=== PATIENT | female | born 1930 | race Asian ===

== ENCOUNTER 2016-07-27 10:05 | Observation (INO) | payer OTHER ==
[~2016-07-27] VITALS: Ht 154.9 cm; Wt 68.3 kg
[~2016-07-27 10:05] MED LIST: ADULT LOW DOSE81 M1 PO; ADVAIR HFA120 INHALA IH; AMIODARONE HCL200 MG PO; AMLODIPINE BESY10 MG PO; AMLODIPINE BESYL5 MG PO; ANTIVERT25 MG PO; ASPIR-LOW81 MG PO; ASPIRIN EC325 MG PO; BAYER CHEWABLE81 MG PO; BENICAR20 MG PO; BENICAR40 MG PO; BENTYL10 MG PO; BENTYL20 MG PO; CARAFATE1 GM PO; CATAPRES0.1 MG PO; CELEBREX200 MG PO; CLEARLAX510 GM PO; CLOPIDOGREL75 MG PO; CORDARONE200 MG PO; DUONEB 2.5-0.5 M3 ML AEROSOL; EFFIENT10 MG PO; ELIQUIS2.5 MG PO; ELIQUIS5 MG PO; GABAPENTIN100 MG PO; GLIPIZIDE XL5 MG PO; GLUCOTROL XL5 MG PO; GLYDO11 ML MM; HYDROCHLOROTHIA25 MG PO; IMDUR60 MG PO; ISOSORBIDE MONO60 MG PO; JANUVIA25 M1 PO; K-DUR20 MEQ PO; KLOR-CON20 MEQ PO; LASIX20 MG PO; LASIX40 MG PO; LORAZEPAM0.5 MG PO; MECLIZINE HCL25 MG PO; METOPROLOL SUC100 MG PO; METOPROLOL SUCC50 MG PO; METOPROLOL TAR100 MG PO; METOPROLOL TART25 MG PO; METOPROLOL TART50 MG PO; MIRALAX17 GM PO; NIASPAN,SLO-NI500 MG PO; NITRO-DUR1 EAC1 TD; NITROGLYCERIN0.4 MG SL; NITROSTAT0.4 MG SL; NORVASC2.5 MG PO; NORVASC5 MG PO; PAIN RELIEF EX500 MG PO; PANTOPRAZOLE SO40 MG PO; PLAVIX75 MG PO; PRAVASTATIN SOD40 MG PO; PRILOSEC20 MG PO; PROMETHAZINE HC25 M1 PO; RANEXA500 MG PO; REFRESH LI300 DROP/1 BOTH EYES; REGLAN10 MG PO; SLO-NIACIN500 MG PO; SPIRIVA RESPIMAT4 GM IH; SPIRONOLACTONE25 MG PO; TOPROL XL100 MG PO; TOPROL XL50 MG PO; TRAMADOL HCL50 MG PO; TRIBENZOR 20-51 EAC1 PO; TRIBENZOR 40-51 EAC5 PO; TYLENOL EXTRA500 MG PO; ULTRAM ER100 MG PO; ULTRAM50 MG PO; VYTORIN 10/21 TABLET PO; ZANTAC150 MG PO
[2016-07-27 10:59] LABS: HEMATOCRIT 41.7 % (36.0-46.0); MCH 24.5 PG (29.0-34.0); MCHC 33.8 G/DL (30.0-36.0); MCV 72.5 FL (83-99); MEAN PLAT.VOLUME 10.9 uM^3 (9.5-12.4); PLATELET COUNT 243 K/uL (156-360); RBC DIS.WIDTH-CV 15.1 % (11.8-14.6); RBC DIS.WIDTH-SD 39.3 % (39-53); RED BLOOD COUNT 5.75 M/uL (3.80-5.20); WHITE BLOOD COUNT 7.1 K/uL (4.1-10.2)
[2016-07-27 11:08] LABS: CHLORIDE 105 mEq/L (99-109); POTASSIUM 3.5 mEq/L (3.7-5.4); SODIUM 142 mEq/L (136-147)
[2016-07-27 11:10] LABS: GLUCOSE 98 mg/dL (70-99)
[2016-07-27 11:12] LABS: ANION GAP 12 MEQ/L (2-14)
[2016-07-27 11:14] LABS: GFR ESTIMATE (CALCULATED) 41 mL/min/
[2016-07-27 11:15] LABS: UREA NITROGEN (BUN) 19 mg/dL (9-23)
[2016-07-27 11:18] LABS: TROP-I INTERPRETATION INDETERMINATE; TROPONIN-I 0.31 ng/mL (0.0-0.30)
[2016-07-27] MEDS ORDERED: METOPROLOL SUCC50 MG PO (12:22)
[2016-07-27] MEDS ORDERED: METOPROLOL SUC100 MG PO (12:22)
[2016-07-27] MEDS ORDERED: RESTASIS 01 DROP/0.4 BOTH EYES (12:25)
[2016-07-27 13:42] VITALS: BP 118/56
[2016-07-27 16:40] VITALS: BP 126/59
[2016-07-27 18:45] LABS: TROP-I INTERPRETATION INDETERMINATE; TROPONIN-I 0.31 ng/mL (0.0-0.30)
[2016-07-28 00:59] LABS: TROP-I INTERPRETATION NEGATIVE; TROPONIN-I 0.27 ng/mL (0.0-0.30)
[2016-07-28 02:04] VITALS: BP 147/67
[2016-07-28 05:08] VITALS: BP 153/70
[2016-07-28 08:00] VITALS: BP 136/61
[2016-07-28 11:00] VITALS: BP 114/56
[2016-07-28 11:26] LABS: TROP-I INTERPRETATION NEGATIVE; TROPONIN-I 0.24 ng/mL (0.0-0.30)
== END 2016-07-28 17:50 | disposition home or self-care (01) ==
LOC: EME 10:05 → EDOF 11:59 → 5WEST 11:59 → EDOF 11:59 → 5WEST 13:17
PROVIDERS: Hospitalist; Physician Assistant
DX: R07.89 Other chest pain (principal); R10.9 Unspecified abdominal pain; I11.0 Hypertensive heart disease with heart failure; I50.32 Chronic diastolic (congestive) heart failure; I48.0 Paroxysmal atrial fibrillation; Z79.01 Long term (current) use of anticoagulants; E11.9 Type 2 diabetes mellitus without complications; Z95.0 Presence of cardiac pacemaker; I35.2 Nonrheumatic aortic (valve) stenosis with insufficiency; I25.10 Atherosclerotic heart disease of native coronary artery without angina pectoris; Z98.61 Coronary angioplasty status; Z95.820 Peripheral vascular angioplasty status with implants and grafts; Z87.891 Personal history of nicotine dependence; Z88.8 Allergy status to other drugs, medicaments and biological substances
CPT/HCPCS: 71020; 74020; 80048; 84484; 85027; 93005; 99281; 99284; G0378; S0028

== ENCOUNTER 2016-10-10 12:38 | Observation (INO) | payer OTHER ==
[~2016-10-10] VITALS: Ht 154.9 cm; Wt 63.3 kg
[~2016-10-10 12:38] MED LIST changes: +RESTASIS 01 DROP/0.4 BOTH EYES
[2016-10-10 14:29] LABS: HEMATOCRIT 41.5 % (36.0-46.0); MCH 24.2 PG (29.0-34.0); MCHC 32.5 G/DL (30.0-36.0); MCV 74.4 FL (83-99); MEAN PLAT.VOLUME 11.1 uM^3 (9.5-12.4); PLATELET COUNT 212 K/uL (156-360); RBC DIS.WIDTH-CV 15.5 % (11.8-14.6); RBC DIS.WIDTH-SD 41.6 % (39-53); RED BLOOD COUNT 5.58 M/uL (3.80-5.20); WHITE BLOOD COUNT 10.5 K/uL (4.1-10.2)
[2016-10-10 14:40] LABS: CHLORIDE 106 mEq/L (99-109); POTASSIUM 3.9 mEq/L (3.7-5.4); SODIUM 140 mEq/L (136-147)
[2016-10-10 14:42] LABS: GLUCOSE 140 mg/dL (70-99)
[2016-10-10 14:43] LABS: ANION GAP 11 MEQ/L (2-14)
[2016-10-10 14:44] LABS: TOTAL BILIRUBIN 1.6 mg/dL (0.0-1.0)
[2016-10-10 14:46] LABS: ALKALINE PHOSPHATASE 73 IU/L (3-129); GFR ESTIMATE (CALCULATED) 45 mL/min/
[2016-10-10 14:47] LABS: UREA NITROGEN (BUN) 15 mg/dL (9-23)
[2016-10-10 14:48] LABS: DIRECT BILIRUBIN 0.7 mg/dL (0.0-0.3)
[2016-10-10 14:49] LABS: LIPASE 23 U/L (1.0-51.0)
[2016-10-10 14:52] LABS: TROP-I INTERPRETATION NEGATIVE; TROPONIN-I 0.23 ng/mL (0.0-0.30)
[2016-10-10 17:39] VITALS: BP 143/70
[2016-10-10 18:50] LABS: TROP-I INTERPRETATION NEGATIVE; TROPONIN-I 0.16 ng/mL (0.0-0.30)
[2016-10-10 20:31] VITALS: BP 141/70
[2016-10-10 21:37] LABS: POINT-OF-CARE METER ID UU13113831
[2016-10-10 22:31] LABS: INFLUENZA A VIRAL ANTIGEN NEGATIVE; INFLUENZA B VIRAL ANTIGEN NEGATIVE
[2016-10-11 00:10] VITALS: BP 131/61
[2016-10-11 01:09] LABS: TROP-I INTERPRETATION NEGATIVE; TROPONIN-I 0.21 ng/mL (0.0-0.30)
[2016-10-11 04:08] VITALS: BP 104/58
[2016-10-11 07:35] VITALS: BP 103/54
[2016-10-11 07:53] LABS: POINT-OF-CARE METER ID UU13113831
[2016-10-11 08:46] LABS: HEMATOCRIT 38.1 % (36.0-46.0); MCH 24.3 PG (29.0-34.0); MCV 75.9 FL (83-99); MEAN PLAT.VOLUME 10.7 uM^3 (9.5-12.4); PLATELET COUNT 180 K/uL (156-360); RBC DIS.WIDTH-CV 15.7 % (11.8-14.6); RBC DIS.WIDTH-SD 42.6 % (39-53); RED BLOOD COUNT 5.02 M/uL (3.80-5.20); WHITE BLOOD COUNT 8.2 K/uL (4.1-10.2)
[2016-10-11 09:09] LABS: ALKALINE PHOSPHATASE 52 IU/L (3-129); ANION GAP 9 MEQ/L (2-14); CHLORIDE 103 MEQ/L (99-109); GFR ESTIMATE (CALCULATED) 41 mL/min/; GLUCOSE 119 mg/dL (70-99); POTASSIUM 3.7 MEQ/L (3.7-5.4); SAMPLE HEMOLYSIS CHECK 0; SAMPLE ICTERIC CHECK 0; SAMPLE LIPEMIA CHECK 0; SODIUM 140 MEQ/L (136-147); TOTAL BILIRUBIN 1.4 MG/DL (0.0-1.0); UREA NITROGEN (BUN) 19 mg/dL (9-23)
[2016-10-11 09:31] LABS: TROP-I INTERPRETATION NEGATIVE; TROPONIN-I 0.17 ng/mL (0.0-0.30)
[2016-10-11] MEDS ORDERED: DULCOLAX10 MG PR (11:12)
[2016-10-11] MEDS ORDERED: DULCOLAX5 MG PO (11:12)
[2016-10-11] MEDS ORDERED: FUROSEMIDE40 MG PO (11:12)
[2016-10-11] MEDS ORDERED: DOCUSATE SODIU100 MG PO (11:12)
[2016-10-11 11:29] VITALS: BP 110/72
[2016-10-11 15:46] LABS: METH RESISTANT S AUREUS PCR NEGATIVE (NEGATIVE)
[2016-10-11 16:03] LABS: PROBE CHECK PASS; SPECIMEN PROCESSING CONTROL PASS
== END 2016-10-11 14:14 | disposition home or self-care (01) ==
LOC: EME 12:38 → EXP 12:38 → 5WEST 16:31 → EDOF 16:31 → 5WEST 17:33
PROVIDERS: Emergency Medicine; Hospitalist
DX: I13.0 Hypertensive heart and chronic kidney disease with heart failure and stage 1 through stage 4 chronic kidney disease, or unspecified chronic kidney disease (principal); I50.33 Acute on chronic diastolic (congestive) heart failure; N18.3 Chronic kidney disease, stage 3 (moderate); I25.10 Atherosclerotic heart disease of native coronary artery without angina pectoris; E11.9 Type 2 diabetes mellitus without complications; I48.0 Paroxysmal atrial fibrillation; I73.9 Peripheral vascular disease, unspecified; I08.0 Rheumatic disorders of both mitral and aortic valves; I27.2 Other secondary pulmonary hypertension; Z95.0 Presence of cardiac pacemaker
CPT/HCPCS: 71020; 74176; 80048; 80053; 80076; 82948; 83605; 83690; 83880; 84145 90; 84484; 85027; 87040; 87502; 87641; 93005; 99281; 99285; G0378; J1940; J2405

== ENCOUNTER 2016-11-20 00:53 | Emergency (ER) | payer OTHER ==
[~2016-11-20] VITALS: Ht 154.9 cm; Wt 64.0 kg
[~2016-11-20 00:53] MED LIST changes: +DOCUSATE SODIU100 MG PO; +DULCOLAX10 MG PR; +DULCOLAX5 MG PO; +FUROSEMIDE40 MG PO
[2016-11-20 02:13] LABS: HEMATOCRIT 40.6 % (36.0-46.0); MCH 24.3 PG (29.0-34.0); MCHC 32.3 G/DL (30.0-36.0); MCV 75.3 FL (83-99); MEAN PLAT.VOLUME 11.1 uM^3 (9.5-12.4); PLATELET COUNT 226 K/uL (156-360); RBC DIS.WIDTH-CV 15.7 % (11.8-14.6); RBC DIS.WIDTH-SD 41.8 % (39-53); RED BLOOD COUNT 5.39 M/uL (3.80-5.20); WHITE BLOOD COUNT 5.8 K/uL (4.1-10.2)
[2016-11-20 02:24] LABS: CHLORIDE 106 mEq/L (99-109); SODIUM 140 mEq/L (136-147)
[2016-11-20 02:27] LABS: GLUCOSE 112 mg/dL (70-99)
[2016-11-20 02:28] LABS: ANION GAP 9 MEQ/L (2-14)
[2016-11-20 02:29] LABS: TOTAL BILIRUBIN 0.7 mg/dL (0.0-1.0)
[2016-11-20 02:30] LABS: ALKALINE PHOSPHATASE 81 IU/L (3-129)
[2016-11-20 02:31] LABS: GFR ESTIMATE (CALCULATED) 35 mL/min/; UREA NITROGEN (BUN) 19 mg/dL (9-23)
[2016-11-20 04:39] LABS: INTER. NORMALIZED RATIO 1.1; PROTHROMBIN TIME 11.1 (9.2-11.2); PTT 30.2 (25-32)
[2016-11-20 04:47] LABS: LIPASE 46 U/L (1.0-51.0)
[2016-11-20 04:51] LABS: TROP-I INTERPRETATION NEGATIVE; TROPONIN-I 0.25 ng/mL (0.0-0.30)
[2016-11-20 05:30] LABS: BILIRUBIN NEGATIVE; BLOOD NEGATIVE; COLOR YELLOW ((YELLOW)); GLUCOSE (STRIP) NEGATIVE; KETONES NEGATIVE; LEUKOCYTES NEGATIVE; NITRITE NEGATIVE; PROTEIN (STRIP) 30; SPECIFIC GRAVITY 1.025 (1.000-1.030); UROBILINOGEN 0.2 MG/DL (0.2-1.0)
[2016-11-20 05:40] LABS: ADD MIUA? NO; UCUL ADDED? NO
[2016-11-20] MEDS ORDERED: BENTYL20 MG PO (06:39)
[2016-11-20] MEDS ORDERED: REGLAN5 MG PO (06:39)
[2016-11-20 07:39] VITALS: BP 148/80
[2016-11-21] MEDS ORDERED: LASIX40 MG PO (09:21)
[2016-11-21] MEDS ORDERED: MIRALAX255 GM PO (09:25)
[2016-11-21] MEDS ORDERED: REGLAN5 MG PO (09:28)
[2016-11-21] MEDS ORDERED: BENTYL20 MG PO (09:28)
== END 2016-11-20 07:41 | disposition home or self-care (01) ==
LOC: EME 00:53
DX: K52.9 Noninfective gastroenteritis and colitis, unspecified (principal); R10.32 Left lower quadrant pain; J90 Pleural effusion, not elsewhere classified; E78.5 Hyperlipidemia, unspecified; I10 Essential (primary) hypertension; Z98.61 Coronary angioplasty status; Z87.891 Personal history of nicotine dependence
CPT/HCPCS: 71020; 74176; 80053; 81003; 83605; 83690; 83880; 84484; 85027; 85610; 85730; 87040; 93005; 99281; 99285; J2270; J2765

== ENCOUNTER 2016-11-21 03:57 | Inpatient (IN) | payer OTHER ==
[~2016-11-21] VITALS: Ht 152.4 cm; Wt 68.0 kg
[~2016-11-21 03:57] MED LIST changes: +REGLAN5 MG PO
[2016-11-21 04:44] LABS: HEMATOCRIT 39.2 % (36.0-46.0); MCH 24.4 PG (29.0-34.0); MCHC 32.4 G/DL (30.0-36.0); MCV 75.4 FL (83-99); MEAN PLAT.VOLUME 10.9 uM^3 (9.5-12.4); PLATELET COUNT 216 K/uL (156-360); RBC DIS.WIDTH-CV 15.5 % (11.8-14.6); RBC DIS.WIDTH-SD 41.5 % (39-53); WHITE BLOOD COUNT 7.3 K/uL (4.1-10.2)
[2016-11-21 04:57] LABS: CHLORIDE 110 mEq/L (99-109); POTASSIUM 3.8 mEq/L (3.7-5.4); SODIUM 142 mEq/L (136-147)
[2016-11-21 04:59] LABS: GLUCOSE 173 mg/dL (70-99)
[2016-11-21 05:00] LABS: ANION GAP 11 MEQ/L (2-14)
[2016-11-21 05:02] LABS: GFR ESTIMATE (CALCULATED) 33 mL/min/
[2016-11-21 05:03] LABS: UREA NITROGEN (BUN) 19 mg/dL (9-23)
[2016-11-21 05:05] LABS: TROP-I INTERPRETATION NEGATIVE; TROPONIN-I 0.25 ng/mL (0.0-0.30)
[2016-11-21] MEDS ORDERED: LASIX40 MG PO (09:21)
[2016-11-21] MEDS ORDERED: MIRALAX255 GM PO (09:25)
[2016-11-21] MEDS ORDERED: BENTYL20 MG PO (09:28)
[2016-11-21] MEDS ORDERED: REGLAN5 MG PO (09:28)
[2016-11-21 12:42] LABS: TROP-I INTERPRETATION NEGATIVE; TROPONIN-I 0.26 ng/mL (0.0-0.30)
[2016-11-21 16:50] VITALS: BP 128/74
[2016-11-21 17:33] LABS: POINT-OF-CARE METER ID UU14174225
[2016-11-21 19:50] VITALS: BP 127/61
[2016-11-21 23:47] VITALS: BP 129/61
[2016-11-22 03:25] VITALS: BP 128/68
[2016-11-22 06:05] LABS: HEMATOCRIT 40.2 % (36.0-46.0); MCH 25.2 PG (29.0-34.0); MCHC 32.8 G/DL (30.0-36.0); MCV 76.9 FL (83-99); MEAN PLAT.VOLUME 10.8 uM^3 (9.5-12.4); PLATELET COUNT 224 K/uL (156-360); RBC DIS.WIDTH-CV 16.1 % (11.8-14.6); RBC DIS.WIDTH-SD 43.5 % (39-53); RED BLOOD COUNT 5.23 M/uL (3.80-5.20); WHITE BLOOD COUNT 7.4 K/uL (4.1-10.2)
[2016-11-22 07:04] LABS: ANION GAP 7 MEQ/L (2-14); CHLORIDE 105 MEQ/L (99-109); GFR ESTIMATE (CALCULATED) 38 mL/min/; SAMPLE HEMOLYSIS CHECK 0; SAMPLE ICTERIC CHECK 0; SAMPLE LIPEMIA CHECK 0; SODIUM 140 MEQ/L (136-147); UREA NITROGEN (BUN) 17 mg/dL (9-23)
[2016-11-22 07:05] LABS: GLUCOSE 105 mg/dL (70-99)
[2016-11-22 07:51] VITALS: BP 156/80
[2016-11-22 07:54] LABS: POINT-OF-CARE METER ID UU14174225
[2016-11-22 11:28] VITALS: BP 132/79
[2016-11-22 12:24] LABS: POINT-OF-CARE METER ID UU14174225
[2016-11-22 12:48] LABS: TROP-I INTERPRETATION NEGATIVE; TROPONIN-I 0.24 ng/mL (0.0-0.30)
[2016-11-22 15:43] VITALS: BP 152/71
[2016-11-22 20:03] VITALS: BP 142/66
[2016-11-22 21:37] LABS: POINT-OF-CARE METER ID UU14188625
[2016-11-23] VITALS: BP 146/67
[2016-11-23 04:00] VITALS: BP 142/73
[2016-11-23 06:44] LABS: ANION GAP 7 MEQ/L (2-14); CHLORIDE 105 MEQ/L (99-109); GFR ESTIMATE (CALCULATED) 35 mL/min/; GLUCOSE 97 mg/dL (70-99); POTASSIUM 3.3 MEQ/L (3.7-5.4); SAMPLE HEMOLYSIS CHECK 0; SAMPLE ICTERIC CHECK 0; SAMPLE LIPEMIA CHECK 0; SODIUM 142 MEQ/L (136-147); UREA NITROGEN (BUN) 18 mg/dL (9-23)
[2016-11-23 08:04] LABS: POINT-OF-CARE METER ID UU14188625
[2016-11-23 08:50] VITALS: BP 147/67
[2016-11-23 11:58] VITALS: BP 115/58
[2016-11-23 15:33] VITALS: BP 133/62
[2016-11-23 16:21] LABS: POINT-OF-CARE METER ID UU14174225
[2016-11-23 21:25] LABS: POINT-OF-CARE METER ID UU14174225
[2016-11-23 23:13] VITALS: BP 138/66
[2016-11-24 06:53] LABS: ANION GAP 10 MEQ/L (2-14); CHLORIDE 105 MEQ/L (99-109); GFR ESTIMATE (CALCULATED) 38 mL/min/; GLUCOSE 104 mg/dL (70-99); SAMPLE HEMOLYSIS CHECK 0; SAMPLE ICTERIC CHECK 0; SAMPLE LIPEMIA CHECK 0; SODIUM 140 MEQ/L (136-147); UREA NITROGEN (BUN) 19 mg/dL (9-23)
[2016-11-24 07:10] LABS: POTASSIUM 4.4 MEQ/L (3.7-5.4)
[2016-11-24 08:15] LABS: HEMATOCRIT 39.1 % (36.0-46.0); MCH 24.8 PG (29.0-34.0); MCHC 32.7 G/DL (30.0-36.0); MCV 75.8 FL (83-99); MEAN PLAT.VOLUME 11.4 uM^3 (9.5-12.4); PLATELET COUNT 232 K/uL (156-360); RBC DIS.WIDTH-CV 15.6 % (11.8-14.6); RBC DIS.WIDTH-SD 42.4 % (39-53); RED BLOOD COUNT 5.16 M/uL (3.80-5.20); WHITE BLOOD COUNT 7.1 K/uL (4.1-10.2)
[2016-11-24 08:56] VITALS: BP 137/73
[2016-11-24 09:01] LABS: POINT-OF-CARE METER ID UU14188625
[2016-11-24 12:36] VITALS: BP 122/56
[2016-11-24 12:57] LABS: TROP-I INTERPRETATION NEGATIVE; TROPONIN-I 0.29 ng/mL (0.0-0.30)
== END 2016-11-24 14:39 | disposition home or self-care (01) | DRG 291 ==
LOC: EME 03:57 → EDOF 09:26 → 5SOUTH 09:26
PROVIDERS: Emergency Medicine; Hospitalist; Internal Medicine; Nurse Practitioner Adult Health; Physician Assistant Medical
PROC: 0W9B3ZZ Drainage of Left Pleural Cavity, Percutaneous Approach (ICD-10-PCS; principal; 2016-11-24)
DX: I13.0 Hypertensive heart and chronic kidney disease with heart failure and stage 1 through stage 4 chronic kidney disease, or unspecified chronic kidney disease (principal); I50.23 Acute on chronic systolic (congestive) heart failure; E11.22 Type 2 diabetes mellitus with diabetic chronic kidney disease; N18.3 Chronic kidney disease, stage 3 (moderate); I48.0 Paroxysmal atrial fibrillation; I25.10 Atherosclerotic heart disease of native coronary artery without angina pectoris; Z95.0 Presence of cardiac pacemaker; E78.5 Hyperlipidemia, unspecified; G47.33 Obstructive sleep apnea (adult) (pediatric); I35.0 Nonrheumatic aortic (valve) stenosis; I27.2 Other secondary pulmonary hypertension; I73.9 Peripheral vascular disease, unspecified; Z91.19 Patient's noncompliance with other medical treatment and regimen; Z87.891 Personal history of nicotine dependence
CPT/HCPCS: 71010; 71020; 71250; 80048; 82948; 84484; 85027; 87040; 87641; 93005; 94640; 94640 76; 94799; 99202; 99281; 99285; J0456; J0692; J0696; J1815; J1940; J2405; J3370; J7030; J7050

== ENCOUNTER 2016-11-30 13:31 | Inpatient (IN) | payer OTHER ==
[~2016-11-30] VITALS: Ht 154.9 cm; Wt 65.8 kg
[~2016-11-30 13:31] MED LIST changes: +MIRALAX255 GM PO
[2016-11-30 15:12] LABS: HEMATOCRIT 41.7 % (36.0-46.0); MCH 24.1 PG (29.0-34.0); MCHC 32.1 G/DL (30.0-36.0); MCV 75.1 FL (83-99); MEAN PLAT.VOLUME 10.9 uM^3 (9.5-12.4); PLATELET COUNT 231 K/uL (156-360); RBC DIS.WIDTH-CV 15.1 % (11.8-14.6); RBC DIS.WIDTH-SD 41.1 % (39-53); RED BLOOD COUNT 5.55 M/uL (3.80-5.20)
[2016-11-30 15:21] LABS: CHLORIDE 103 mEq/L (99-109); POTASSIUM 4.1 mEq/L (3.7-5.4); SODIUM 140 mEq/L (136-147)
[2016-11-30 15:23] LABS: GLUCOSE 101 mg/dL (70-99)
[2016-11-30 15:24] LABS: ANION GAP 9 MEQ/L (2-14)
[2016-11-30 15:27] LABS: GFR ESTIMATE (CALCULATED) 38 mL/min/
[2016-11-30 15:28] LABS: UREA NITROGEN (BUN) 21 mg/dL (9-23)
[2016-11-30 15:34] LABS: TROP-I INTERPRETATION NEGATIVE; TROPONIN-I 0.27 ng/mL (0.0-0.30)
[2016-11-30 18:15] VITALS: BP 132/70
[2016-11-30 18:40] LABS: TROP-I INTERPRETATION NEGATIVE; TROPONIN-I 0.25 ng/mL (0.0-0.30)
[2016-11-30 20:00] VITALS: BP 143/60
[2016-11-30 20:56] LABS: POINT-OF-CARE METER ID UU13113698
[2016-11-30 23:55] VITALS: BP 137/62
[2016-12-01 01:00] LABS: TROP-I INTERPRETATION NEGATIVE; TROPONIN-I 0.25 ng/mL (0.0-0.30)
[2016-12-01 03:42] VITALS: BP 140/65
[2016-12-01 06:49] LABS: ANION GAP 8 MEQ/L (2-14); CHLORIDE 102 MEQ/L (99-109); GFR ESTIMATE (CALCULATED) 35 mL/min/; GLUCOSE 89 mg/dL (70-99); POTASSIUM 3.7 MEQ/L (3.7-5.4); SAMPLE HEMOLYSIS CHECK 0; SAMPLE ICTERIC CHECK 0; SAMPLE LIPEMIA CHECK 0; SODIUM 141 MEQ/L (136-147); UREA NITROGEN (BUN) 18 mg/dL (9-23)
[2016-12-01 07:30] VITALS: BP 127/63
[2016-12-01 08:25] LABS: POINT-OF-CARE METER ID UU14174216
[2016-12-01 08:46] LABS: HEMATOCRIT 41.5 % (36.0-46.0); MCHC 31.8 G/DL (30.0-36.0); MCV 75.3 FL (83-99); MEAN PLAT.VOLUME 11.3 uM^3 (9.5-12.4); PLATELET COUNT 250 K/uL (156-360); RBC DIS.WIDTH-CV 15.3 % (11.8-14.6); RBC DIS.WIDTH-SD 41.4 % (39-53); RED BLOOD COUNT 5.51 M/uL (3.80-5.20); WHITE BLOOD COUNT 6.5 K/uL (4.1-10.2)
[2016-12-01 09:29] LABS: ANION GAP 8 MEQ/L (2-14); CHLORIDE 102 MEQ/L (99-109); GFR ESTIMATE (CALCULATED) 38 mL/min/; GLUCOSE 99 mg/dL (70-99); POTASSIUM 3.7 MEQ/L (3.7-5.4); SAMPLE HEMOLYSIS CHECK 0; SAMPLE ICTERIC CHECK 0; SAMPLE LIPEMIA CHECK 0; SODIUM 141 MEQ/L (136-147); UREA NITROGEN (BUN) 19 mg/dL (9-23)
[2016-12-01 11:30] LABS: POINT-OF-CARE METER ID UU14174216
[2016-12-01 12:25] VITALS: BP 108/59
[2016-12-01 15:15] VITALS: BP 112/60
[2016-12-01 15:56] LABS: POINT-OF-CARE METER ID UU14174216
[2016-12-01] MEDS ORDERED: LASIX40 MG PO (16:26)
== END 2016-12-01 18:36 | disposition home or self-care (01) | DRG 291 ==
LOC: EME 13:31 → EDOF 16:14 → 4EAST 16:14
PROVIDERS: Emergency Medicine; Hospitalist; Physician Assistant
DX: I13.0 Hypertensive heart and chronic kidney disease with heart failure and stage 1 through stage 4 chronic kidney disease, or unspecified chronic kidney disease (principal); I50.33 Acute on chronic diastolic (congestive) heart failure; N18.9 Chronic kidney disease, unspecified; E11.22 Type 2 diabetes mellitus with diabetic chronic kidney disease; E11.51 Type 2 diabetes mellitus with diabetic peripheral angiopathy without gangrene; I25.110 Atherosclerotic heart disease of native coronary artery with unstable angina pectoris; I48.0 Paroxysmal atrial fibrillation; I27.2 Other secondary pulmonary hypertension; I08.3 Combined rheumatic disorders of mitral, aortic and tricuspid valves; G47.33 Obstructive sleep apnea (adult) (pediatric); R10.13 Epigastric pain; E78.5 Hyperlipidemia, unspecified; Z95.0 Presence of cardiac pacemaker; Z95.5 Presence of coronary angioplasty implant and graft; Z95.820 Peripheral vascular angioplasty status with implants and grafts; Z91.19 Patient's noncompliance with other medical treatment and regimen; Z87.891 Personal history of nicotine dependence; Z83.3 Family history of diabetes mellitus; Z79.01 Long term (current) use of anticoagulants; Z79.02 Long term (current) use of antithrombotics/antiplatelets
CPT/HCPCS: 71010; 71020; 80048; 80048 91; 82948; 83880; 84484; 85027; 93005; 93306; 99281; 99285; J1815; J1940; J3010